=== PATIENT | male | born 1960 | race Native Hawaiian/Other Pacific Islander ===

== ENCOUNTER 2017-01-11 09:25 | Inpatient (IN) | payer SELFPAY ==
[~2017-01-11] VITALS: Ht 160 cm; Wt 121.1 kg
[2017-01-11] MEDS ORDERED: SODIUM CHLORIDE 0.9% 1,000 ML IV ONE (10:04)
[2017-01-11] MEDS ORDERED: MORPHINE SULFATE 4 MG/ML SYRG IV ONE (10:15)
[2017-01-11] MEDS ORDERED: METOPROLOL TARTRATE 50 MG TAB PO ONE (10:15)
[2017-01-11] MEDS ORDERED: ONDANSETRON HCL 4 MG/2 ML VIAL IV ONE (10:15)
[2017-01-11] MEDS ORDERED: LORazepam 2MG/ML-1ML VIAL IV ONE (10:15)
[2017-01-11 10:18] LABS: Basophils # (auto) 0 uL; Basophils % (auto) 0.4 % (0.0-2.0); Eosinophils # (auto) 0.3 uL; Eosinophils % (auto) 3.7 % (0.0-7.0); Hematocrit 48.1 % (41.0-53.0); Hemoglobin 15.9 g/dL (13.5-17.5); Lymphocytes # (auto) 2.1 uL; Lymphocytes % (auto) 29.4 % (10.0-50.0); Mean Corpuscular Hemoglobin 29.9 pg (28.0-32.0); Mean Corpuscular Hgb Conc. 33.1 g/dL (32.0-36.0); Mean Corpuscular Volume 90.4 fL (80.0-100.0); Mean Platelet Volume 9.3 fL (7.4-10.4); Monocytes # (auto) 0.5 uL; Monocytes % (auto) 7.3 % (0.0-12.0); Neutrophils # (auto) 4.2 uL; Neutrophils % (auto) 59.2 % (37.0-80.0); Platelet Count (auto) 257 10^3/uL (140-450); Red Cell Distribution Width 14.1 % (11.6-16.0); White Blood Cell 7.1 10^3/uL (4.4-10.8)
[2017-01-11 10:24] LABS: Albumin 3.6 g/dL (3.4-5.0); BUN/Creatinine Ratio 8.8; Calcium 8.6 mg/dL (8.5-10.1); Magnesium 1.9 mg/dL (1.6-2.6)
[2017-01-11 10:29] LABS: Bilirubin, Total 0.7 mg/dL (0.2-1.0); Total Protein 8.1 g/dL (6.4-8.2)
[2017-01-11] MEDS ORDERED: MORPHINE SULFATE 4 MG/ML SYRG ONE (10:44)
[2017-01-11] MEDS ORDERED: CLOPIDOGREL BISULFATE 75 MG TAB PO ONE (10:45)
[2017-01-11] MEDS ORDERED: ENOXAPARIN SOD 120 MG/0.8 ML SYRINGE SC ONE (10:45)
[2017-01-11] MEDS ORDERED: PROMETHAZINE HCL 25 MG/ML 1ML IV PRN (11:00)
[2017-01-11] MEDS ORDERED: LACTULOSE 20Gm/30ML SOLN PO PRN (11:00)
[2017-01-11] MEDS ORDERED: NITROGLYCERIN 0.4 MG SL TAB SL PRN (11:00)
[2017-01-11] MEDS ORDERED: HYDROcodone-ACET 5/325MG TAB PO PRN (11:00)
[2017-01-11] MEDS ORDERED: TEMAZEPAM 15 MG CAP PO PRN (11:00)
[2017-01-11] MEDS ORDERED: ACETAMINOPHEN 500 MG TAB PO PRN (11:00)
[2017-01-11] MEDS ORDERED: LORazepam 0.5 MG TAB PO PRN (11:00)
[2017-01-11] MEDS ORDERED: MORPHINE SULF INJ 2 MG/ML SYRINGE 1ML IV PRN ×2 (11:00)
[2017-01-11] MEDS ORDERED: DEXTROSE (50%) 50ML SYRG IV PRN (11:00)
[2017-01-11] MEDS: InsuLIN REG 1unit/0.01ml Soln (100units/ml) SC SCH ×3 (11:30→22:03)
[2017-01-11] MEDS: ACCU-CHEK COMFORT CURVE STRIP VI SCH ×3 (12:03→22:02)
[2017-01-11] MEDS: SODIUM CHLORIDE 0.9% 1,000 ML IV SCH (12:39)
[2017-01-11 16:59] VITALS: BP 131/84
[2017-01-11 19:30] VITALS: BP 101/68
[2017-01-11] MEDS: METOPROLOL TARTRATE 25 MG TAB PO SCH ×2 (21:39→22:01)
[2017-01-11 22:00] VITALS: BP 101/68
[2017-01-11] MEDS ORDERED: ATORVASTATIN 20 MG TAB PO SCH (22:00)
[2017-01-12] MEDS: SODIUM CHLORIDE 0.9% 1,000 ML IV SCH (00:13)
[2017-01-12 05:05] VITALS: BP 108/70
[2017-01-12] MEDS: ACCU-CHEK COMFORT CURVE STRIP VI SCH (06:04)
[2017-01-12] MEDS: InsuLIN REG 1unit/0.01ml Soln (100units/ml) SC SCH (06:05)
[2017-01-12 07:04] LABS: Albumin 3.1 g/dL (3.4-5.0); BUN/Creatinine Ratio 13.7; Bilirubin, Total 1.1 mg/dL (0.2-1.0); Calcium 8.6 mg/dL (8.5-10.1); Potassium 3.8 mmol/L (3.5-5.1); Total Protein 6.6 g/dL (6.4-8.2)
[2017-01-12 08:00] VITALS: BP 106/71
[2017-01-12 09:06] VITALS: BP 106/71
[2017-01-12] MEDS ORDERED: ASPirin 81 mg TAB PO SCH (10:00)
[2017-01-12] MEDS ORDERED: ENOXAPARIN SOD 40 MG/0.4 ML SYRINGE SC SCH (10:00)
[2017-01-12] MEDS ORDERED: NITROGLYCERIN 0.2MG/HR TOPICAL PATCH TD SCH (10:00)
[2017-01-12] MEDS ORDERED: PANTOPRAZOLE 40 MG TAB PO SCH (10:00)
== END 2017-01-12 09:30 | disposition left against medical advice (07) | DRG 302 ==
LOC: ER 09:25 → TELE 09:26 → TELE-E-ADS 14:35 → TELE-EAST 16:25
PROVIDERS: ADMIT Internal Medicine; ATTEND Internal Medicine
DX: I25.119 Atherosclerotic heart disease of native coronary artery with unspecified angina pectoris (principal); I63.9 Cerebral infarction, unspecified; I61.9 Nontraumatic intracerebral hemorrhage, unspecified; I24.1 Dressler's syndrome; I24.9 Acute ischemic heart disease, unspecified; Z68.42 Body mass index [BMI] 45.0-49.9, adult; I11.0 Hypertensive heart disease with heart failure; E78.5 Hyperlipidemia, unspecified; E66.01 Morbid (severe) obesity due to excess calories; E11.65 Type 2 diabetes mellitus with hyperglycemia; I50.9 Heart failure, unspecified; Z86.73 Personal history of transient ischemic attack (TIA), and cerebral infarction without residual deficits; Z87.891 Personal history of nicotine dependence; Z95.1 Presence of aortocoronary bypass graft
CPT/HCPCS: 36415; 71010; 80053; 80061; 82550; 82962; 83036; 83735; 84484; 85025; 85379; 85652; 86141; 93005; 96361; 96372; 96374; 96375; G0434; J1815; J2405